=== PATIENT | male | born 1955 | race African-American/Black ===

== ENCOUNTER 2018-07-23 10:30 | Inpatient (IN) | payer MEDICARE, OTHER ==
[~2018-07-23] VITALS: Ht 188 cm; Wt 125.6 kg
[~2018-07-23 10:30] MED LIST: ASPIR-LOW81 MG ORAL; IBUPROFEN600 MG PO; METOPROLOL TART50 MG ORAL; NORCO 5-325 TA1 EACH ORAL
--- NOTE | 2018-07-23 10:37 | NUR ---
ED Nurse Note: Pt BIBA from home w/ complaints of vomiting x 3 days. Pt denies pain. Pt also has hematuria since last night. Pt has a hx of HTN, DM, and gout. Pt is A + O x4. Ambulatory. Skin warm to touch.
[2018-07-23 10:39] VITALS: BP 141/109
--- NOTE | 2018-07-23 10:46 | Emergency Room Report ---
History of Present Illness General Chief Complaint: Vomiting Source: Patient Present Illness HPI The patient presents with a week of increasing left knee pain and swelling. He has a history of gout. He's not been taking any medication for this. His thought that he had a fever yesterday. He's also had some nausea and vomiting 2 days ago. This is somewhat improved at this time. He also complained of some hematuria yesterday without dysuria. He's having difficulty ambulating and can't sleep because of the pain. The pain is rated 10/10, pressure and aching in the knee and doesn't radiate. He denies any edema or calf pain. There is no recent trauma. Not eat for 2 days. The patient is a diabetic on metformin. The patient has hypertension on amlodipine and metoprolol. Allergies: Coded Allergies: No Known Allergies (Unverified , 03/29/13) Patient History Past Medical History: see triage record Social History: Reports: smoking Social History Narrative Reviewed Nursing Documentation: PMH: Agreed; PSxH: Agreed Nursing Documentation-PMH Hx Hypertension: Yes Hx Diabetes: Yes Review of Systems All Other Systems: negative except mentioned in HPI Physical Exam Vital Signs Date Time Temp Pulse Resp B/P (MAP) Pulse Ox O2 Delivery O2 Flow Rate FiO2 07/23/18 10:25 97.7 120 18 133/91 96 Room Air 07/23/18 10:39 98 Medical Decision Making Diagnostic Impression: Primary Impression: Gout Qualified Codes: M10.9 - Gout, unspecified Additional Impressions: UTI (urinary tract infection) Qualified Codes: N39.0 - Urinary tract infection, site not specified Dehydration Acute vomiting ER Course Patient presents with left knee pain with history of gout. Differential includes gout, degenerative arthritis, hernandez cyst amongst others. Evaluation will be with EKG, chest x-ray, knee film and labs. He also complains of hematuria which may suggest a UTI. The patient will be treated with colchicine initially. EKG without injury but tachycardia. Chest x-ray increased rouse bilaterally. Increase heart size. Labs with leukocytosis. Mild renal insufficiency. Elevated BNP. Uric acid 8.5. Normal lactate. Left knee with chondrocalcinosis and effusion with degenerative joint disease. Patient's pain is somewhat improved with colchicine. Antibiotics begun for urinary tract infection. Patient given hydration although concern regarding chest x-ray and minimally elevated BNP. Pain persist and morphine given. Patient admitted medical floor Dr. Wood. Laboratory Tests Test 07/23/18 10:55 White Blood Count 13.2 K/UL (4.8-10.8) H Red Blood Count 5.63 M/UL (4.70-6.10) Hemoglobin 15.3 G/DL (14.2-18.0) Hematocrit 47.2 % (42.0-52.0) Mean Corpuscular Volume 84 FL (80-99) Mean Corpuscular Hemoglobin 27.3 PG (27.0-31.0) Mean Corpuscular Hemoglobin Concent 32.5 G/DL (32.0-36.0) Red Cell Distribution Width 14.4 % (11.6-14.8) Platelet Count 231 K/UL (150-450) Mean Platelet Volume 8.7 FL (6.5-10.1) Neutrophils (%) (Auto) 78.2 % (45.0-75.0) H Lymphocytes (%) (Auto) 10.7 % (20.0-45.0) L Monocytes (%) (Auto) 10.5 % (1.0-10.0) H Eosinophils (%) (Auto) 0.0 % (0.0-3.0) Basophils (%) (Auto) 0.6 % (0.0-2.0) Erythrocyte Sedimentation Rate 21 MM/HR (0-20) H Prothrombin Time 11.4 SEC (9.30-11.50) Prothrombin Time INR 1.1 (0.9-1.1) PTT 41 SEC (23-33) H Urine Color Yellow Urine Appearance Clear Urine pH 5 (4.5-8.0) Urine Specific [place] 1.025 (1.005-1.035) Urine Protein 4+ (NEGATIVE) H Urine Glucose (UA) 1+ (NEGATIVE) H Urine Ketones 3+ (NEGATIVE) H Urine Blood 3+ (NEGATIVE) H Urine Nitrite Positive (NEGATIVE) H Urine Bilirubin 2+ (NEGATIVE) H Urine Ictotest Positive (NEGATIVE) Urine Urobilinogen 8 MG/DL (0.0-1.0) H Urine Leukocyte Esterase 2+ (NEGATIVE) H Urine RBC 2-4 /HPF (0 - 0) H Urine WBC 5-10 /HPF (0 - 0) H Urine Squamous Epithelial Cells Occasional /LPF Urine Bacteria Few /HPF (NONE) Urine Granular Casts 2-4 /LPF (NONE) H Urine Mucus Moderate /LPF (NONE/OCC) H Sodium Level 136 MMOL/L (136-145) Potassium Level 3.9 MMOL/L (3.5-5.1) Chloride Level 96 MMOL/L (98-107) L Carbon Dioxide Level 26 MMOL/L (21-32) Anion Gap 14 mmol/L (5-15) Blood Urea Nitrogen 16 mg/dL (7-18) Creatinine 1.3 MG/DL (0.55-1.30) Estimate Glomerular Filtration Rate > 60 mL/min (>60) Glucose Level 150 MG/DL (74-106) H Lactic Acid Level 1.80 mmol/L (0.4-2.0) Uric Acid 8.5 MG/DL (2.6-7.2) H Calcium Level 9.8 MG/DL (8.5-10.1) Total Bilirubin 2.3 MG/DL (0.2-1.0) H Direct Bilirubin 0.7 MG/DL (0.0-0.3) H Aspartate Amino Transferase (AST) 10 U/L (15-37) L Alanine Aminotransferase (ALT) 14 U/L (12-78) Alkaline Phosphatase 95 U/L (46-116) Total Creatine Kinase 127 U/L (26-308) Troponin I 0.000 ng/mL (0.000-0.056) Pro-B-Type Natriuretic Peptide 789 pg/mL (0-125) H Total Protein 9.2 G/DL (6.4-8.2) H Albumin 3.1 G/DL (3.4-5.0) L Globulin 6.1 g/dL Albumin/Globulin Ratio 0.5 (1.0-2.7) L EKG Diagnostic Results Rate: tachycardiac Rhythm: NSR ST Segments: no acute changes - LVH Rhythm Strip Diag. Results EP Interpretation: yes Rhythm: no PVC's, no ectopy, other - ST Chest X-Ray Diagnostic Results Chest X-Ray Diagnostic Results : Chest X-Ray Ordered: Yes # of Views/Limited/Complete: 1 View Indication: Other EP Interpretation: Yes Interpretation: no effusion, no pneumothorax, other - increased rouse, inc cor Impression: Other Electronically Signed by: Electronically signed by Deshawn Krause MD Other X-Ray Diagnostic Results Other X-Ray Diagnostic Results : X-Ray ordered: Left knee # of Views/Limited Vs Complete: 3 View Interpretation: no dislocation, no fractures, other - Chondrocalcinosis and effusion Impression: Other Electronically Signed by: Electronically signed by Deshawn Krause MD Last Vital Signs Date Time Temp Pulse Resp B/P (MAP) Pulse Ox O2 Delivery O2 Flow Rate FiO2 07/24/18 00:00 99.2 101 20 111/83 (92) 93 07/23/18 21:00 Room Air 07/23/18 12:30 98 Status: improved Disposition: ADMITTED INPATIENT Condition: Serious Deshawn Krause MD Jul 23, 2018 10:46
--- NOTE | 2018-07-23 11:09 | NUR ---
ED Nurse Note: Notified radiology of xray order.
[2018-07-23 11:11] LABS: BASOPHILS % (AUTO) 0.6 % (0.0-2.0); HEMATOCRIT 47.2 % (42.0-52.0); HEMOGLOBIN 15.3 G/DL (14.2-18.0); LYMPHOCYTES % (AUTO) 10.7 % (20.0-45.0); MEAN CORPUSCULAR VOLUME 84 FL (80-99); MONOCYTES % (AUTO) 10.5 % (1.0-10.0); NEUTROPHILS % (AUTO) 78.2 % (45.0-75.0); PLATELET COUNT 231 K/UL (150-450); RED BLOOD COUNT 5.63 M/UL (4.70-6.10); RED CELL DISTRIBUTION WIDTH 14.4 % (11.6-14.8); WHITE BLOOD COUNT 13.2 K/UL (4.8-10.8)
[2018-07-23 11:13] LABS: APPEARANCE,URINE CLEAR; BILIRUBIN, URINE 2+ (NEGATIVE); GLUCOSE, URINE (UA) 1+ (NEGATIVE); KETONES,URINE 3+ (NEGATIVE); LEUKOCYTE ESTERASE ,URINE 2+ (NEGATIVE); NITRITE,URINE POSITIVE (NEGATIVE); PH,URINE 5 (4.5-8.0); PROTEIN,URINE 4+ (NEGATIVE); UROBILINOGEN,URINE 8 MG/DL (0.0-1.0)
--- NOTE | 2018-07-23 11:14 | NUR ---
ED Nurse Note: Xray at the bedside.
[2018-07-23 11:21] LABS: ANION GAP 14 mmol/L (5-15); BLOOD UREA NITROGEN 16 mg/dL (7-18); CALCIUM 9.8 MG/DL (8.5-10.1); CARBON DIOXIDE 26 MMOL/L (21-32); CHLORIDE 96 MMOL/L (98-107); CREATININE 1.3 MG/DL (0.55-1.30); POTASSIUM 3.9 MMOL/L (3.5-5.1); SODIUM 136 MMOL/L (136-145)
[2018-07-23 11:23] LABS: INR 1.1 (0.9-1.1)
[2018-07-23 11:28] LABS: COLOR,URINE YELLOW
[2018-07-23] MEDS ORDERED: Metoprolol Succinate XL 50mg tab ORAL ONE (11:30)
[2018-07-23 11:38] LABS: ALANINE AMINOTRANSFERASE 14 U/L (12-78); ALBUMIN 3.1 G/DL (3.4-5.0); ALBUMIN/GLOBULIN RATIO 0.5 (1.0-2.7); ALKALINE PHOSPHATASE 95 U/L (46-116); ASPARTATE AMINO TRANSFERASE 10 U/L (15-37); BILIRUBIN,TOTAL 2.3 MG/DL (0.2-1.0); CREATINE KINASE 127 U/L (26-308)
[2018-07-23 11:40] LABS: BILIRUBIN,DIRECT 0.7 MG/DL (0.0-0.3)
[2018-07-23] MEDS ORDERED: cefTRIAXone 1 GM in NS 55 ML IVPB ONE (12:00)
[2018-07-23 12:30] VITALS: BP 165/115
[2018-07-23] MEDS ORDERED: Morphine Sulfate 4mg/ml Inj (IV USE ONLY) IVP PRN (13:00)
--- NOTE | 2018-07-23 13:18 | NUR ---
ED Nurse Note: Tried giving report, Rn unavailable.
--- NOTE | 2018-07-23 13:33 | Diagnostic Imaging Report ---
Indication: Chest pain Technique: One view of the chest Comparison: 09/08/2010 Findings: There is equivocal mild interstitial congestion. The heart is borderline enlarged. No focal airspace consolidation. No definite effusions. Impression: Borderline cardiomegaly Equivocal interstitial congestive changes-correlate with clinical findings.
--- NOTE | 2018-07-23 13:35 | Diagnostic Imaging Report ---
Indication: Knee pain for 3 days Technique: 3 views of the left knee Comparison: None Findings: No acute fractures. No dislocations. There is lateral and medial meniscal chondrocalcinosis. There is unusual pattern of chondrocalcinosis of the articular cartilage of the femur and patella as well. The joint spaces are preserved. There are lateral osteophytes and patellofemoral osteophytes Questionable suprapatellar effusion noted Impression: No acute bony trauma Minimal degenerative changes, as described Meniscal and articular cartilage chondrocalcinosis Possible joint effusion-correlate with clinical finding
--- NOTE | 2018-07-23 13:58 | NUR ---
ED Nurse Note: Gave telephone report to DIONNA Baxter.
--- NOTE | 2018-07-23 14:08 | NUR ---
ED Nurse Note: Pt transferred up to med surg unit. No acute distress noted. Left Er w/ all belongings.
--- NOTE | 2018-07-23 14:32 | NUR ---
NURSE NOTES: patient admitted to 408-2 from ER. A&O x 4. no respiratory distress noted. no c/o pain at this time. IV on RAC intact. skin assessment done. no skin issues. no belonging except underwear. the took all the belonging to home. no vomitting at this time. bed in the lowest position. call light within reach. will continue to monitor
[2018-07-23] MEDS: HYDROcodone/Acetamin 5/325 tab ORAL PRN (17:59)
[2018-07-23] MEDS: Cefepime HCl 1 GM in D5W 55 ML IVPB SCH (18:01)
--- NOTE | 2018-07-23 19:35 | NUR ---
HAND-OFF: Report given to DIONNA gerardo.
[2018-07-23 20:00] VITALS: BP 128/84
--- NOTE | 2018-07-23 20:02 | NUR ---
NURSE NOTES: patient received. patient in no acute distress at this time. patient complains of no pain at this time. patient awake alert and oriented x4. bed in lowest position and locked. call light within reach. bed alarm on. IV intact and asymptomatic. urinal at bedside. will continue to monitor.
[2018-07-23] MEDS: Metoprolol Tartrate 50mg tab ORAL SCH (20:53)
[2018-07-24] VITALS: BP 111/83
[2018-07-24 04:00] VITALS: BP 132/94
[2018-07-24] MEDS: Cefepime HCl 1 GM in D5W 55 ML IVPB SCH ×2 (06:11→18:16)
[2018-07-24 07:00] LABS: BASOPHILS % (AUTO) 0.7 % (0.0-2.0); EOSINOPHILS % (AUTO) 0.3 % (0.0-3.0); HEMATOCRIT 42.1 % (42.0-52.0); HEMOGLOBIN 13.7 G/DL (14.2-18.0); LYMPHOCYTES % (AUTO) 13.2 % (20.0-45.0); MEAN CORPUSCULAR VOLUME 85 FL (80-99); MONOCYTES % (AUTO) 11.8 % (1.0-10.0); NEUTROPHILS % (AUTO) 74.1 % (45.0-75.0); PLATELET COUNT 219 K/UL (150-450); RED BLOOD COUNT 4.97 M/UL (4.70-6.10); RED CELL DISTRIBUTION WIDTH 14.4 % (11.6-14.8); WHITE BLOOD COUNT 10.7 K/UL (4.8-10.8)
[2018-07-24 07:12] LABS: ANION GAP 10 mmol/L (5-15); BLOOD UREA NITROGEN 22 mg/dL (7-18); CALCIUM 9.5 MG/DL (8.5-10.1); CARBON DIOXIDE 26 MMOL/L (21-32); CHLORIDE 101 MMOL/L (98-107); CREATININE 1.3 MG/DL (0.55-1.30); POTASSIUM 4.1 MMOL/L (3.5-5.1); SODIUM 137 MMOL/L (136-145)
--- NOTE | 2018-07-24 07:20 | NUR ---
HAND-OFF: Report given to lesly melgar.
--- NOTE | 2018-07-24 07:25 | NUR ---
NURSE NOTES: Report received from Blaire VILLAREAL, rounds made. Patient alert, oriented x4, calm, sitting in semi-fowlers position in bed. Denies pain, SOB on RA or NV. IV infusing to RAC, as ordered. Call light in reach, bed in lowest position, will continue to monitor.
[2018-07-24 08:00] VITALS: BP 127/88
--- NOTE | 2018-07-24 08:16 | NUR ---
[employer]ESSER 63 Y/O MALE BIB[place] FROM HOME [place] [facility] [place] [facility] CC:VOMITING SI:GOUT . DEHYDRATION . UTI VS: BP 165/115, P 129, T 97.5, RR 27, SpO2 98 WBC 13.2, Hgb 13.7, URINE: Protein 4+, Glucose 1+, Ketones 3+, Blood 3+ KNEE XRAY IMPRESSION: Meniscal and articular cartilage chondrocalcinosis. Possible joint effusion-correlate with clinical finding IS:COLCHICINE 0.6mg NS x1L IV TOPROL XL 50mg CEFTRIAXONE 55ml IVPB ZOFRAN 4mg IVP MORPHINE SULFATE 4mg IVP ADMITTED TO MED/SURG DC PLAN: RETURN HOME
[2018-07-24] MEDS: Aspirin Baby 81mg ORAL SCH (09:32)
[2018-07-24] MEDS: Metoprolol Tartrate 50mg tab ORAL SCH ×2 (09:32→20:57)
[2018-07-24] MEDS: HYDROcodone/Acetamin 5/325 tab ORAL PRN ×2 (09:34→22:47)
[2018-07-24 12:00] VITALS: BP 125/82
[2018-07-24 16:00] VITALS: BP 119/80
--- NOTE | 2018-07-24 17:00 | History and Physical Report ---
DATE OF ADMISSION: 07/23/2018 REASON FOR ADMISSION: Significant pain, possible urinary tract infection, gouty pain. HISTORY OF PRESENT ILLNESS: This is a 63-year-old male who was noted to have left knee pain and swelling. He has history of gout. He has not been taking his medication and noted to have possible fever. The patient also with some nausea and vomiting. The patient was seen in the emergency room for further evaluation. Notes that he has significant discomfort at this time. The patient is diabetic, on metformin and is hypertensive. The patient was seen and evaluated in the emergency room. Workup was performed. EKG with noted tachycardia. Chest x-ray with no significant finding, but elevated natriuretic peptide. The patient was given colchicine with some improvement and also started with antibiotics for possible urinary tract infection. PAST MEDICAL HISTORY: Notable for gout, hypertension, history of diabetes. MEDICATIONS: Reviewed. ALLERGIES: Reviewed. SOCIAL HISTORY: Currently, nonsmoker and nondrinker. Lives with his . The patient is retired. PHYSICAL EXAMINATION: GENERAL: A well-developed male, comfortable at present, but does complain of pain. VITAL SIGNS: Pulse rate 110, temperature 97.2, blood pressure 127/88, saturation 98%, the patient's respiratory rate is 19. HEENT: Negative. Extraocular movements are grossly intact. NECK: Supple. LUNGS: Fairly clear and symmetric. CARDIAC: Mildly tachycardic, otherwise regular without murmurs, rubs, or gallops. ABDOMEN: Soft, nontender, and nondistended. EXTREMITIES: No cyanosis or clubbing. There is mild edema. Pain with knee, especially with range of motion of motion. LABORATORY DATA: Otherwise reviewed, notable for elevated natriuretic peptide. Albumin is 3.1, BUN 22, creatinine 1.3. The white count was 13.2 at initial evaluation. IMPRESSION: 1. Possible gouty attack with noted elevated uric acid. 2. Acute renal failure. 3. Possible urinary tract infection. 4. History of diabetes. 5. History of hypertension. RECOMMENDATION: 1. Supportive care. 2. IV hydration. We will start allopurinol and empiric antibiotics. 3. Follow up cultures, pain control as needed, and monitored for change and recommend further with hopes to discharge once the patient improves. Lonnie Wood M.D. DR: BLOSSOM JOB#: [id number] CC:
--- NOTE | 2018-07-24 19:30 | NUR ---
HAND-OFF: Report given to Sydnie VILLAREAL.
--- NOTE | 2018-07-24 19:59 | NUR ---
NURSE NOTES: PATIENT IN BED, ON RA, NO SOB, NO ACUTE DISTRESS, NO C/O PAIN. LFA 20G INTACT, PATENT RUNNING IVF. BED IN LOWEST POSITION, LOCKED, ALARMS ON, CALL LIGHT IN REACH.
[2018-07-24 20:00] VITALS: BP 121/84
[2018-07-25] VITALS: BP 112/88
--- NOTE | 2018-07-25 02:37 | NUR ---
HAND-OFF: Report given to Betty VILLAREAL.
[2018-07-25 04:13] VITALS: BP 125/91
[2018-07-25] MEDS: HYDROcodone/Acetamin 5/325 tab ORAL PRN ×3 (04:17→18:46)
[2018-07-25 06:25] LABS: BASOPHILS % (AUTO) 0.7 % (0.0-2.0); EOSINOPHILS % (AUTO) 0.7 % (0.0-3.0); HEMATOCRIT 40.2 % (42.0-52.0); LYMPHOCYTES % (AUTO) 13.5 % (20.0-45.0); MEAN CORPUSCULAR VOLUME 84 FL (80-99); MONOCYTES % (AUTO) 11.4 % (1.0-10.0); NEUTROPHILS % (AUTO) 73.7 % (45.0-75.0); PLATELET COUNT 212 K/UL (150-450); RED BLOOD COUNT 4.76 M/UL (4.70-6.10); RED CELL DISTRIBUTION WIDTH 14.5 % (11.6-14.8); WHITE BLOOD COUNT 8.7 K/UL (4.8-10.8)
[2018-07-25] MEDS: Cefepime HCl 1 GM in D5W 55 ML IVPB SCH ×2 (06:31→18:42)
[2018-07-25 06:40] LABS: ANION GAP 10 mmol/L (5-15); BLOOD UREA NITROGEN 22 mg/dL (7-18); CALCIUM 8.8 MG/DL (8.5-10.1); CARBON DIOXIDE 25 MMOL/L (21-32); CHLORIDE 102 MMOL/L (98-107); CREATININE 1.1 MG/DL (0.55-1.30); SODIUM 137 MMOL/L (136-145)
--- NOTE | 2018-07-25 07:32 | NUR ---
NURSE NOTES: Received pt from DIONNA ARROYO. Pt is alert and orient x4. pt is in RA . No SOB or acute respiratory distress noted. Pt has intact iv access LFA 20G N/S is running. All needs attended. bed is locked and is in the lowest position. call light within easy reach. will continue to monitor.
--- NOTE | 2018-07-25 07:36 | NUR ---
5HAND-OFF: Report given to DIONNA Clemente.
[2018-07-25 08:00] VITALS: BP 138/99
[2018-07-25] MEDS: Allopurinol 100mg Tab ORAL SCH (10:09)
[2018-07-25] MEDS: Aspirin Baby 81mg ORAL SCH (10:09)
[2018-07-25] MEDS: Metoprolol Tartrate 50mg tab ORAL SCH ×2 (10:18→20:49)
--- NOTE | 2018-07-25 10:52 | Pulmonology Progress Note ---
Assessment/Plan Assessment/Plan Pulmonary Progress Note: HPI: Patient is a 63-year-old male who was noted admitted with left knee pain and swelling. He has history of gout. He has not been taking his medication. The patient had fever/ nausea/ vomitingon admission. The patient is diabetic, on metformin and is hypertensive. The patient was seen and evaluated in the emergency room. Workup was performed. EKG with noted tachycardia. Chest x-ray with no significant finding, but elevated natriuretic peptide. The patient was given colchicine with some improvement and also started with antibiotics for possible urinary tract infection. PAST MEDICAL HISTORY: Notable for gout, hypertension, history of diabetes. MEDICATIONS: Reviewed. ALLERGIES: Reviewed. SOCIAL HISTORY: Currently, nonsmoker and nondrinker. Lives with his . The patient is retired. PHYSICAL EXAMINATION: GENERAL: A well-developed male, comfortable at present, but does complain of pain. VITAL SIGNS NOTED HEENT: Negative. Extraocular movements are grossly intact. NECK: Supple. LUNGS: Fairly clear and symmetric. CARDIAC: Mildly tachycardic, otherwise regular without murmurs, rubs, or gallops. ABDOMEN: Soft, nontender, and nondistended. EXTREMITIES: No cyanosis or clubbing. There is mild edema. Pain with knee, especially with range of motion of motion. LABORATORY DATA: Otherwise reviewed, notable for elevated natriuretic peptide. Albumin is 3.1, BUN 22, creatinine 1.3. The white count was 13.2 at initial evaluation. IMPRESSION: 1. Possible gouty attack with noted elevated uric acid. 2. Acute renal failure. 3. Possible urinary tract infection. 4. History of diabetes. 5. History of hypertension. RECOMMENDATION: 1. Supportive care. 2. IV hydration. We will start allopurinol and empiric antibiotics. 3. Follow up cultures, pain control as needed, and monitored for change and recommend further with hopes to discharge once the patient improves. Subjective ROS Limited/Unobtainable: No Allergies: Coded Allergies: No Known Allergies (Unverified , 03/29/13) Objective Last 24 Hour Vital Signs Date Time Temp Pulse Resp B/P (MAP) Pulse Ox O2 Delivery O2 Flow Rate FiO2 07/25/18 10:18 91 138/99 07/25/18 08:00 98.1 91 18 138/99 (112) 96 07/25/18 04:13 98.5 92 18 125/91 (102) 95 4/12/19 00:00 99.1 90 18 112/88 (96) 98 07/24/18 21:00 Room Air 07/24/18 20:57 108 121/84 07/24/18 20:00 99.3 108 18 121/84 (96) 95 07/24/18 16:00 98.3 102 18 119/80 (93) 94 07/24/18 12:00 97.2 96 20 125/82 (96) 97 Intake and Output 07/24/18 07/25/18 19:00 07:00 Intake Total 2220 ml 800 ml Output Total 275 ml Balance 2220 ml 525 ml Intake Oral 1220 ml IV Total 1000 ml 800 ml Output Urine Total 275 ml # Voids 6 Laboratory Tests 07/25/18 05:35: White Blood Count 8.7, Red Blood Count 4.76, Hemoglobin 13.0L, Hematocrit 40.2L , Mean Corpuscular Volume 84, Mean Corpuscular Hemoglobin 27.2, Mean Corpuscular Hemoglobin Concent 32.3, Red Cell Distribution Width 14.5, Platelet Count 212, Mean Platelet Volume 8.0, Neutrophils (%) (Auto) 73.7, Lymphocytes (% ) (Auto) 13.5L, Monocytes (%) (Auto) 11.4H, Eosinophils (%) (Auto) 0.7, Basophils (%) (Auto) 0.7, Sodium Level 137, Potassium Level 4.0, Chloride Level 102, Carbon Dioxide Level 25, Anion Gap 10, Blood Urea Nitrogen 22H, Creatinine 1.1, Estimat Glomerular Filtration Rate > 60, Glucose Level 111H, Calcium Level 8.8 Current Medications Medications (Trade) Dose Ordered Sig/[place] Route PRN Reason Start Time Stop Time Status Last Admin Dose Admin Acetaminophen/ Hydrocodone Bitart ([place] 5/325) 1 tab Q6H PRN ORAL For Pain 07/23/18 16:59 07/30/18 16:58 07/25/18 10:10 Allopurinol (Zyloprim) 100 mg DAILY ORAL 07/25/18 09:00 08/24/18 08:59 07/25/18 10:09 Aspirin (ASA) 81 mg DAILY ORAL 07/24/18 09:00 08/23/18 08:59 07/25/18 10:09 Cefepime HCl 1 gm/ Dextrose 55 ml @ 110 mls/hr Q12H IVPB 07/23/18 18:30 07/30/18 18:29 07/25/18 06:31 Metoprolol Tartrate (Lopressor) 50 mg Q12HR ORAL 07/23/18 21:00 08/22/18 20:59 07/25/18 10:18 Ondansetron HCl (Zofran) 4 mg Q6H PRN IVP Nausea & Vomiting 07/23/18 16:59 08/22/18 16:58 Sodium Chloride 1,000 ml @ 100 mls/hr Q10H IV 07/23/18 18:00 08/22/18 17:59 07/25/18 02:35 Deshawn Rosales MD Jul 25, 2018 10:52
[2018-07-25 12:00] VITALS: BP 133/95
[2018-07-25 16:00] VITALS: BP 129/91
--- NOTE | 2018-07-25 19:30 | NUR ---
HAND-OFF: Report given to DIONNA WU.
[2018-07-25 20:40] VITALS: BP 148/102
--- NOTE | 2018-07-25 20:50 | NUR ---
NURSE NOTES: Patient in bed, AOx4. IV leaking on left forearm 20 gauge, IV removed. No complaints of pain at this time. No s/s distress noted. Bed in lowest position, call light within reach, bed alarm on. Patient refused to have bed linen changed, per patient "It's fine. I wet it with water because I get hot easily." Will continue to monitor.
[2018-07-26] VITALS (7 sets, daily range): BP systolic 135–150; BP diastolic 85–104
[2018-07-26] MEDS: Cefepime HCl 1 GM in D5W 55 ML IVPB SCH ×2 (05:30→17:40)
[2018-07-26] MEDS: HYDROcodone/Acetamin 5/325 tab ORAL PRN ×3 (06:29→21:14)
--- NOTE | 2018-07-26 06:30 | NUR ---
NURSE NOTES: Patient had complaints of pain, Bentley prn was given as ordered.
--- NOTE | 2018-07-26 07:15 | NUR ---
HAND-OFF: Report given to LETI Delgado RN.
--- NOTE | 2018-07-26 07:30 | NUR ---
NURSE NOTES: Received pt from DIONNA WU. Pt is alert and orient x4. pt is in RA . No SOB or acute respiratory distress noted. Pt has intact iv access RFA 24G N/S is running. Pt asked to walk, called Dr reagan, Dr Rosales called back and ordered PT eval, noted and carried out. All needs attended. bed is locked and is in the lowest position. call light within easy reach. will continue to monitor.
[2018-07-26] MEDS: Metoprolol Tartrate 50mg tab ORAL SCH ×2 (08:47→21:13)
[2018-07-26] MEDS: Allopurinol 100mg Tab ORAL SCH (08:47)
[2018-07-26] MEDS: Aspirin Baby 81mg ORAL SCH (08:47)
--- NOTE | 2018-07-26 14:10 | NUR ---
CHARGE NURSE NOTES: SPOKE WITH KALYN RUBY, PER HER WILL SET UP [facility] ORDERED.
--- NOTE | 2018-07-26 15:38 | NUR ---
PT Note PT soraya completed, tx initiated. Patient's mobility and gait is limited by bilateral LE weakness and pain. Per patient, gout has usually manifested on his right knee; now he has it on the left. Patient needs PT services to increase his muscle strength and ROM and balance to improve his functional mobility. Addendum: 07/26/18 at 1539 by ELANA GOODWIN PT Amended: Links added.
--- NOTE | 2018-07-26 17:02 | NUR ---
CASE MANAGEMENT: DCPNOTE PER MD ORDER PATIENT REFERRED FOR HOME HEALTH [facility] [phone] PH / [phone] FAX CM WILL F/U
--- NOTE | 2018-07-26 17:23 | Pulmonology Progress Note ---
Assessment/Plan Assessment/Plan Pulmonary Progress Note: HPI: Patient is a 63-year-old male who was noted admitted with left knee pain and swelling. He has history of gout. He has not been taking his medication. The patient had fever/ nausea/ vomitingon admission. The patient is diabetic, on metformin and is hypertensive. The patient was seen and evaluated in the emergency room. Workup was performed. EKG with noted tachycardia. Chest x-ray with no significant finding, but elevated natriuretic peptide. The patient was given colchicine with some improvement and also started with antibiotics for possible urinary tract infection. PAST MEDICAL HISTORY: Notable for gout, hypertension, history of diabetes. MEDICATIONS: Reviewed. ALLERGIES: Reviewed. SOCIAL HISTORY: Currently, nonsmoker and nondrinker. Lives with his . The patient is retired. PHYSICAL EXAMINATION: GENERAL: A well-developed male, comfortable at present, but does complain of pain. VITAL SIGNS NOTED HEENT: Negative. Extraocular movements are grossly intact. NECK: Supple. LUNGS: Fairly clear and symmetric. CARDIAC: Mildly tachycardic, otherwise regular without murmurs, rubs, or gallops. ABDOMEN: Soft, nontender, and nondistended. EXTREMITIES: No cyanosis or clubbing. There is mild edema. Pain with knee, especially with range of motion of motion. LABORATORY DATA: Otherwise reviewed, notable for elevated natriuretic peptide. Albumin is 3.1, BUN 22, creatinine 1.3. The white count was 13.2 at initial evaluation. IMPRESSION: 1. Possible gouty attack with noted elevated uric acid. 2. Acute renal failure. 3. Possible urinary tract infection. 4. History of diabetes. 5. History of hypertension. RECOMMENDATION: 1. Supportive care. 2. IV hydration. We will start allopurinol and empiric antibiotics. 3. Follow up cultures, pain control as needed, and monitored for change and recommend further with hopes to discharge once the patient improves. Subjective ROS Limited/Unobtainable: No Allergies: Coded Allergies: No Known Allergies (Unverified , 03/29/13) Objective Last 24 Hour Vital Signs Date Time Temp Pulse Resp B/P (MAP) Pulse Ox O2 Delivery O2 Flow Rate FiO2 07/26/18 16:00 98.1 94 19 136/96 (109) 96 07/26/18 13:47 98.7 07/26/18 12:00 98.7 97 20 136/85 (102) 96 07/26/18 09:00 Room Air 07/26/18 08:47 99 138/90 07/26/18 07:55 98.8 99 20 138/90 (106) 95 07/26/18 06:26 86 141/100 (114) 07/26/18 04:15 98.0 98 19 150/104 (119) 95 07/26/18 00:00 99.1 88 19 140/99 (113) 97 07/25/18 22:12 Room Air 07/25/18 20:49 102 148/102 07/25/18 20:40 99.5 102 19 148/102 (117) 96 Intake and Output 07/25/18 07/26/18 19:00 07:00 Intake Total 1000 ml 1010 ml Output Total 1600 ml Balance 1000 ml -590 ml IV Total 1000 ml 1010 ml Output Urine Total 1600 ml Current Medications Medications (Trade) Dose Ordered Sig/[place] Route PRN Reason Start Time Stop Time Status Last Admin Dose Admin Acetaminophen/ Hydrocodone Bitart ([place] 5/325) 1 tab Q6H PRN ORAL For Pain 07/23/18 16:59 07/30/18 16:58 07/26/18 13:17 Allopurinol (Zyloprim) 100 mg DAILY ORAL 07/25/18 09:00 08/24/18 08:59 07/26/18 08:47 Aspirin (ASA) 81 mg DAILY ORAL 07/24/18 09:00 08/23/18 08:59 07/26/18 08:47 Cefepime HCl 1 gm/ Dextrose 55 ml @ 110 mls/hr Q12H IVPB 07/23/18 18:30 07/30/18 18:29 07/26/18 05:30 Metoprolol Tartrate (Lopressor) 50 mg Q12HR ORAL 07/23/18 21:00 08/22/18 20:59 07/26/18 08:47 Ondansetron HCl (Zofran) 4 mg Q6H PRN IVP Nausea & Vomiting 07/23/18 16:59 08/22/18 16:58 Sodium Chloride 1,000 ml @ 100 mls/hr Q10H IV 07/23/18 18:00 08/22/18 17:59 07/26/18 13:17 Deshawn Rosales MD Jul 26, 2018 17:23
--- NOTE | 2018-07-26 19:19 | NUR ---
HAND-OFF: Report given to DIONNA RICHARDS.
[2018-07-26 20:45] LABS: ANION GAP 10 mmol/L (5-15); BLOOD UREA NITROGEN 16 mg/dL (7-18); CALCIUM 9.2 MG/DL (8.5-10.1); CARBON DIOXIDE 26 MMOL/L (21-32); CHLORIDE 102 MMOL/L (98-107); CREATININE 1.2 MG/DL (0.55-1.30); SODIUM 138 MMOL/L (136-145)
--- NOTE | 2018-07-26 20:51 | NUR ---
NURSE NOTES: RECIEVED PT. IN BED IN LOW POSITION ALERT AND ORIENTED VERBALIZES NEEDS.DR. SOLANO IN NEW ORDERS MADE AND ALL CARRIED OUT.NEEDS ATTENDED.WILL CONTINUE W/ PLAN OF CARE.
[2018-07-27] VITALS: BP 130/89
[2018-07-27 04:00] VITALS: BP 146/103
[2018-07-27] MEDS: Cefepime HCl 1 GM in D5W 55 ML IVPB SCH ×2 (06:10→17:54)
[2018-07-27 07:05] LABS: EOSINOPHILS % (AUTO) 1.8 % (0.0-3.0); HEMATOCRIT 40.5 % (42.0-52.0); LYMPHOCYTES % (AUTO) 21.2 % (20.0-45.0); MEAN CORPUSCULAR VOLUME 84 FL (80-99); MONOCYTES % (AUTO) 10.8 % (1.0-10.0); NEUTROPHILS % (AUTO) 65.3 % (45.0-75.0); PLATELET COUNT 237 K/UL (150-450); RED BLOOD COUNT 4.82 M/UL (4.70-6.10); RED CELL DISTRIBUTION WIDTH 14.4 % (11.6-14.8); WHITE BLOOD COUNT 7.2 K/UL (4.8-10.8)
[2018-07-27 07:24] LABS: ANION GAP 10 mmol/L (5-15); BLOOD UREA NITROGEN 14 mg/dL (7-18); CALCIUM 9.9 MG/DL (8.5-10.1); CARBON DIOXIDE 25 MMOL/L (21-32); CHLORIDE 103 MMOL/L (98-107); SODIUM 138 MMOL/L (136-145)
--- NOTE | 2018-07-27 07:25 | NUR ---
HAND-OFF: Report given to MICHELA VILLAREAL.
--- NOTE | 2018-07-27 07:49 | NUR ---
NURSE NOTES: Received patient from Zari RN, patient is up in bed eating breakfast, no distress noted, bed is locked and in lowest position, call light within reach, will continue to monitor.
[2018-07-27 08:00] VITALS: BP 138/101
[2018-07-27] MEDS: Metoprolol Tartrate 50mg tab ORAL SCH ×2 (08:27→20:35)
[2018-07-27] MEDS: Aspirin Baby 81mg ORAL SCH (08:27)
[2018-07-27] MEDS: Allopurinol 100mg Tab ORAL SCH (08:28)
[2018-07-27] MEDS: HYDROcodone/Acetamin 5/325 tab ORAL PRN ×2 (11:57→22:19)
[2018-07-27 12:00] VITALS: BP 135/102
--- NOTE | 2018-07-27 13:57 | NUR ---
PT Note Attempted to see patient twice but patient refused. RN was notified.
[2018-07-27 16:00] VITALS: BP 128/94
--- NOTE | 2018-07-27 18:32 | Pulmonology Progress Note ---
Assessment/Plan Assessment/Plan Pulmonary Progress Note: HPI: Patient is a 63-year-old male who was noted admitted with left knee pain and swelling. He has history of gout. He has not been taking his medication. The patient had fever/ nausea/ vomitingon admission. The patient is diabetic, on metformin and is hypertensive. The patient was seen and evaluated in the emergency room. Workup was performed. EKG with noted tachycardia. Chest x-ray with no significant finding, but elevated natriuretic peptide. The patient was given colchicine with some improvement and also started with antibiotics for possible urinary tract infection. No new complaints PAST MEDICAL HISTORY: Notable for gout, hypertension, history of diabetes. MEDICATIONS: Reviewed. ALLERGIES: Reviewed. SOCIAL HISTORY: Currently, nonsmoker and nondrinker. Lives with his . The patient is retired. PHYSICAL EXAMINATION: GENERAL: A well-developed male, comfortable at present, but does complain of pain. VITAL SIGNS NOTED HEENT: Negative. Extraocular movements are grossly intact. NECK: Supple. LUNGS: Fairly clear and symmetric. CARDIAC: Mildly tachycardic, otherwise regular without murmurs, rubs, or gallops. ABDOMEN: Soft, nontender, and nondistended. EXTREMITIES: No cyanosis or clubbing. There is mild edema. Pain with knee, especially with range of motion of motion. LABORATORY DATA: Otherwise reviewed, notable for elevated natriuretic peptide. Albumin is 3.1, BUN 22, creatinine 1.3. The white count was 13.2 at initial evaluation. IMPRESSION: 1. Possible gouty attack with noted elevated uric acid. 2. Acute renal failure. 3. Possible urinary tract infection. 4. History of diabetes. 5. History of hypertension. RECOMMENDATION: 1. Supportive care. 2. IV hydration. We will start allopurinol and empiric antibiotics. 3. Follow up cultures, pain control as needed, and monitored for change and recommend further with hopes to discharge once the patient improves. Subjective ROS Limited/Unobtainable: No Allergies: Coded Allergies: No Known Allergies (Unverified , 03/29/13) Objective Last 24 Hour Vital Signs Date Time Temp Pulse Resp B/P (MAP) Pulse Ox O2 Delivery O2 Flow Rate FiO2 07/27/18 16:00 98.9 97 20 128/94 (105) 95 07/27/18 12:27 99.4 07/27/18 12:00 99.4 91 20 135/102 (113) 100 07/27/18 08:27 120 138/101 07/27/18 08:00 98.5 101 18 138/101 (113) 95 07/27/18 08:00 Room Air 07/27/18 04:00 98.7 98 18 146/103 (117) 96 07/27/18 00:00 98.9 90 17 130/89 (103) 97 07/26/18 21:13 98 135/100 07/26/18 21:00 Room Air 07/26/18 20:00 99.0 98 18 135/100 (112) 97 Intake and Output 07/26/18 07/27/18 19:00 07:00 Intake Total 2255 ml 900 ml Output Total 1200 ml Balance 2255 ml -300 ml IV Total 1355 ml 900 ml Other 900 ml Output Urine Total 1200 ml Laboratory Tests 07/26/18 20:15: Sodium Level 138, Potassium Level 4.0, Chloride Level 102, Carbon Dioxide Level 26, Anion Gap 10, Blood Urea Nitrogen 16, Creatinine 1.2, Estimat Glomerular Filtration Rate > 60, Glucose Level 132H, Calcium Level 9.2 07/27/18 06:10: Sodium Level 138, Potassium Level 4.0, Chloride Level 103, Carbon Dioxide Level 25, Anion Gap 10, Blood Urea Nitrogen 14, Creatinine 1.0, Estimat Glomerular Filtration Rate > 60, Glucose Level 105, Calcium Level 9.9, White Blood Count 7.2, Red Blood Count 4.82, Hemoglobin 13.0L, Hematocrit 40.5L, Mean Corpuscular Volume 84, Mean Corpuscular Hemoglobin 26.9L, Mean Corpuscular Hemoglobin Concent 32.0, Red Cell Distribution Width 14.4, Platelet Count 237, Mean Platelet Volume 7.4, Neutrophils (%) (Auto) 65.3, Lymphocytes (%) (Auto) 21.2, Monocytes (%) (Auto) 10.8H, Eosinophils (%) (Auto) 1.8, Basophils (%) (Auto) 1.0 Current Medications Medications (Trade) Dose Ordered Sig/[place] Route PRN Reason Start Time Stop Time Status Last Admin Dose Admin Acetaminophen/ Hydrocodone Bitart (Tyler 5/325) 1 tab Q6H PRN ORAL For Pain 07/23/18 16:59 07/30/18 16:58 07/27/18 11:57 Allopurinol (Zyloprim) 100 mg DAILY ORAL 07/25/18 09:00 08/24/18 08:59 07/27/18 08:28 Aspirin (ASA) 81 mg DAILY ORAL 07/24/18 09:00 08/23/18 08:59 07/27/18 08:27 Cefepime HCl 1 gm/ Dextrose 55 ml @ 110 mls/hr Q12H IVPB 07/23/18 18:30 07/30/18 18:29 07/27/18 17:54 Metoprolol Tartrate (Lopressor) 50 mg Q12HR ORAL 07/23/18 21:00 08/22/18 20:59 07/27/18 08:27 Ondansetron HCl (Zofran) 4 mg Q6H PRN IVP Nausea & Vomiting 07/23/18 16:59 08/22/18 16:58 Sodium Chloride 1,000 ml @ 100 mls/hr Q10H IV 07/23/18 18:00 08/22/18 17:59 07/27/18 11:50 Deshawn Rosales MD Jul 27, 2018 18:32
--- NOTE | 2018-07-27 19:38 | NUR ---
HAND-OFF: Report given to Hannah VILLAREAL.
[2018-07-27 20:00] VITALS: BP 138/92
[2018-07-28] VITALS: BP 128/85
[2018-07-28 04:00] VITALS: BP 136/85
[2018-07-28] MEDS: Cefepime HCl 1 GM in D5W 55 ML IVPB SCH (06:01)
--- NOTE | 2018-07-28 07:38 | NUR ---
NURSE NOTES: RN received pt awake in bed. No signs of acute distress or SOB. Bed in low, locked position, call light within reach. Will continue to monitor.
[2018-07-28 08:00] VITALS: BP 132/81
--- NOTE | 2018-07-28 08:26 | General Progress Note ---
Assessment/Plan Assessment/Plan joint pains gout dm hypertension possible UTI PLAN dc today allopurinol nsaids completed antibiotics home health on discharge impression, plan, and exam edited and reviewed in detail care discussed with RN Subjective Allergies: Coded Allergies: No Known Allergies (Unverified , 03/29/13) Subjective care noted and reviewed PT noted Objective Last 24 Hour Vital Signs Date Time Temp Pulse Resp B/P (MAP) Pulse Ox O2 Delivery O2 Flow Rate FiO2 07/28/18 08:00 97.9 95 18 132/81 (98) 96 07/28/18 04:00 98.2 94 18 136/85 (102) 07/28/18 00:00 99.6 94 19 128/85 (99) 96 07/27/18 21:00 Room Air 07/27/18 20:35 104 138/92 07/27/18 20:00 99.0 104 20 138/92 (107) 96 07/27/18 16:00 98.9 97 20 128/94 (105) 95 07/27/18 12:27 99.4 07/27/18 12:00 99.4 91 20 135/102 (113) 100 07/27/18 08:27 120 138/101 Intake and Output 07/27/18 07/28/18 19:00 07:00 Intake Total 1300 ml 900 ml Output Total 3000 ml Balance 1300 ml -2100 ml IV Total 100 ml 900 ml Other 1200 ml Output Urine Total 3000 ml Height (Feet): 6 Height (Inches): 2.00 Weight (Pounds): 277 Objective WDWN NAD clear breath sounds bilaterally without rhonchi or wheeze [id number] without MRG NABS nontender no HSM no CCE nonfocal Lonnie Wood MD Jul 28, 2018 08:26
[2018-07-28 08:31] VITALS: BP 132/81
[2018-07-28] MEDS: Metoprolol Tartrate 50mg tab ORAL SCH (08:31)
[2018-07-28] MEDS: Aspirin Baby 81mg ORAL SCH (08:31)
[2018-07-28] MEDS: Allopurinol 100mg Tab ORAL SCH (08:31)
[2018-07-28] MEDS ORDERED: ALLOPURINOL100 M1 ORAL ×2 (09:38→09:39)
--- NOTE | 2018-07-28 11:05 | NUR ---
NURSE NOTES: Pt discharged in stable condition. No s/s of acute distress or SOB. Pt belongings accounted for with pt. IV and arm band removed. Discharge packet reviewed with pt, including f/u info for home health w/ telephone number. Pt accompanied by at discharge.
--- NOTE | 2018-07-29 14:28 | Discharge Summary ---
Discharge Summary Discharge Summary _ DATE OF ADMISSION: 07/23/2018 DATE OF DISCHARGE: 07/28/2018 DISCHARGED BY: Dr. Wood REASON FOR ADMISSION: 63 years old male with past medical history of gout, hypertension, diabetes mellitus, presented with left knee pain and swelling. Patient admitted not taking medication for gout. Patient also reported fever a day before. Patient reported nausea and vomiting few days ago, which improved. Patient reported hematuria day before presentation to ED without dysuria. Pain in the left knee was aching, not radiating, 10 out of 10 on a scale 1-10. Patient had difficulty ambulating and could not sleep because of pain. He denied any calf pain. No recent trauma or fall. Upon evaluation vital signs revealed tachycardia. Laboratory workup revealed leukocytosis with WBC 13.2, stable hemoglobin and hematocrit. Urinalysis revealed +2 leukocyte esterase, few bacteria, and mild pyuria. Chemistry demonstrated mild renal insufficiency with BUN 16 and creatinine 1.3. Lactic acid 1.8. Uric acid 8.5. Troponin negative. ProBNP 789.EKG revealed sinus tachycardia with left ventricular hypertrophy, no acute ischemic changes. Albumin 3.1. LFTs stable. Chest x-ray demonstrated borderline cardiomegaly. X-ray of the left knee showed no acute bony trauma pain. Minimal degenerative changes. Meniscal and articular cartilage chondrocalcinosis. Possible joint effusion In the emergency department patient received colchicine and started on antibiotic for possible UTI. Patient received IV hydration. Analgesia provided. Patient subsequently was admitted for further management. HOSPITAL COURSE: Patient admitted to medical surgical floor. Patient started on IV hydration. Allopurinol restarted. Patient started on empiric antibiotics for possible UTI. Leukocytosis resolved, no fevers. Renal parameters and electrolytes were closely monitored, electrolytes corrected as needed , and nephrotoxins were avoided. Prior to discharge BUN 14 and creatinine 1.0. Blood pressure was managed with beta-dakota. Antiplatelet therapy with aspirin continued. Blood pressures remain stable, heart rate stabilized. Pain management was addressed, and pain was controlled. Antiemetic provided as needed. Blood sugar was closely monitored, remained stable. Patient was working with physical therapist. Fall precaution maintained. Weightbearing status was as tolerated. Patient required maximum assistance with a front wheel walker and had unsteady gait. Assistive device training provided. Physical therapist recommended outpatient physical therapy. Home health service was arranged for outpatient physical therapy. Patient stabilized and was ready for discharge home FINAL DIAGNOSES: Possible gout attack with elevated uric acid Acute renal failure-re solved Possible urinary tract infection Diabetes Hypertension DISCHARGE MEDICATIONS: See Medication Reconciliation list. DISCHARGE INSTRUCTIONS: Patient was discharged home with home health arranged for outpatient physical therapy. Follow up with primary care provider in one week. I have been assigned to dictate discharge summary for this account. I was not involved in the patient's management. Marianna Saini NP Jul 29, 2018 14:28
== END 2018-07-28 11:00 | disposition home health service (06) | DRG 554 ==
LOC: EDBD 10:30 → EMR 11:00 → 4E 11:37 → EDBEDREQ 12:16
DX: M10.9 Gout, unspecified (principal); N17.9 Acute kidney failure, unspecified; N39.0 Urinary tract infection, site not specified; Z91.14 Patient's other noncompliance with medication regimen; E11.9 Type 2 diabetes mellitus without complications; I10 Essential (primary) hypertension
CPT/HCPCS: 36415; 71045; 80048; 80053; 81003; 82248; 82550; 83605; 83880; 84484; 84550; 85025; 85610; 85651; 85730; 93005; 96365; 99285; J2405